=== PATIENT | male | born 1970 | race Caucasian/White ===

== ENCOUNTER 2017-09-13 13:05 | Emergency (ER) | payer SELFPAY ==
[2017-09-13 13:06] VITALS: BP 138/97; PULSE 71; RESP 16; TEMP 36.8; O2SAT 96; BMI 30.5
--- NOTE | 2017-09-13 13:37 | CT_ITS ---
STUDY: CT SOFT TISSUE NECK WITH CONTRAST REASON FOR EXAM: Male, 47 years old. Right neck swelling. RADIATION DOSAGE (If Supplied By Facility): CTDIvol = ( 20.12 ) mGy, DLP = ( 592.74 ) mGycm TECHNIQUE: The patient was scanned in a multi-detector CT scanner. High resolution transaxial imaging was performed following intravenous administration of 100 ml of Isovue 300 contrast material. Sagittal and coronal images were reconstructed. Individualized dose optimization techniques were used for this CT. COMPARISON: None. FINDINGS: Normal bilateral parotid glands. Normal bilateral medical terminologist spaces. Normal bilateral parapharyngeal spaces. Normal bilateral carotid spaces. Normal bilateral sublingual and submandibular glands and spaces. Normal visualized nasopharynx. Normal retropharyngeal space. Normal perivertebral space. Normal visualized bilateral faucial tonsils. The visualized tongue, tongue base and oropharynx are normal. The visualized cervical lymph nodes (levels I-) are within normal size limits, and maintain normal morphology. There is no demonstrated solid or cystic mass lesion. There is no abnormal contrast enhancement. Normal epiglottis, bilateral vallecula and hypopharynx. The pre-epiglottic and paraglottic adipose spaces are normal. Normal visualized bilateral piriform sinuses, aryepiglottic folds, vocal cords, and arytenoid-cricoid articulations. Normal subglottic trachea. Normal bilateral lobes of the thyroid gland. Normal visualized pulmonary apices. Normal visualized paranasal sinuses. Normal visualized cervical spine. CT/Soft Tissue Neck WITH Contrast IMPRESSION: Normal enhanced CT examination of the soft tissues of the neck. Electronically Signed: Jorge Cobb MD at 14:45 EST , Service support ,
[2017-09-13 14:10] LABS: Absolute Lymphocyte Count 2.57 X10^3/ul (0.83-4.51); Absolute Neutrophil Count 3.8 X10^3/uL (2.0-7.7); Basophil# 0.04 X10^3/uL; Basophil% 0.5 % (0-1); Eosinophil# 0.75 X10^3/uL; Eosinophils% 9.7 % (0-5); Hematocrit 44.6 % (40-54); Hemoglobin 15.3 g/dl (13.0-16.5); Lymphocyte # 2.57 X10^3/ul (4.0); Lymphocyte % 33.2 % (19-41); Mean Corp Hgb Conc 34.3 g/gl (32-36); Mean Corpuscular Hgb 30.5 pg (27.0-32.0); Mean Platelet Vol. 11.5 fl (6.2-12.0); Monocyte% 7.8 % (0-10); Neutrophil # 3.77 X10^3/uL (2.7-7.7); Neutrophil % 48.7 % (47-70); Platelet Count 156 K/mm3 (150-450); RBC Distribution Width SD 41.6 fl (35.1-43.9); Red Blood Count 5.01 M/mm3 (4.6-6.2); White Blood Count 7.7 K/mm3 (4.4-11.0)
[2017-09-13 14:12] LABS: POSITIVE COUNT NO; POSITIVE DIFFERENTIAL NO; POSITIVE MORPHOLOGY NO
--- NOTE | 2017-09-13 14:52 | ED.DCSUM_ITS ---
- ER Visit Summary Date of Service: 09/13/17 Chief Complaint: Facial swelling History of Present Illness: The patient is a 47 M states for the past week he has had a swelling just posterior to the angle of his mandible and inferior to his ear. He states it is tender to palpation he notes the occasional radiation of pain up towards his forehead. No redness. He states he lost a filling on his tooth about a month ago but has not had any pain. No fevers. No URIs. No sore throat or ear pain. Patient states that he is very concerned he may have cancer since his family has had similar presentations. Physical Examination: Afebrile vital signs are stable Gen: Well-nourished well-developed Head: Normocephalic atraumatic Eyes: Perrl EOMI ENT: TMs clear no rhinorrhea moist mucous membranes Neck: Supple no lymphadenopathy no JVD nontender there appears to be a small lymph node at the angle of the mandible. It is enlarged and tender. There is no overlying erythema. CVS: Regular rate rhythm no murmurs normal S1-S2 Respiratory: No distress clear to auscultation bilaterally chest nontender Abdomen: Soft nontender nondistended normal bowel sounds no masses Back: Nontender Extremity: Nontender no edema Skin: Normal color no rash Neuro: alert orientated ?3 CN II-XII intact normal strength sensation reflexes gait cerebellar Psych: Normal affect normal mood Test Results: White blood cell count was normal. CT of the neck with contrast was negative. Emergency Department Course and Treatment: Patient will be started on Keflex. He is very thankful for the evaluation for putting his mind at ease. Patient will return if worsening or follow-up with ENT (Dr. Issa on-call today) if not improving. Impression: 1. Lymphadenitis This note was generated with [employer] ([employer] dictation software. It may contain incorrect words, spelling, and punctuation that were not noted in review of the chart prior to signing ED Disposition - Plan for ED Patient: Disposition: Home or Assisted Living Chief Complaint: Dental Instructions: ED Lymphangitis Prescriptions: Cephalexin [Keflex] 500 mg PO Q6 #40 cap Referrals: Care Physician,No Primary [Primary Care Provider] - Jacoby Issa MD [STAFF PHYSICIAN] - 1 Week if not improving
== END 2017-09-13 15:07 | disposition home or self-care (01) ==
PROVIDERS: Emergency Provider Emergency Medicine
DX: I88.9 Nonspecific lymphadenitis, unspecified (principal)
CPT/HCPCS: 70491; 85025; 99284; Q9967; A4216

== ENCOUNTER 2017-09-29 09:22 | Emergency (ER) | payer SELFPAY ==
[2017-09-29 09:23] VITALS: BP 138/96; PULSE 59; RESP 18; TEMP 36.8; O2SAT 98; BMI 30.5
--- NOTE | 2017-09-29 09:58 | ED.DCSUM_ITS ---
- ER Visit Summary Date of Service: 09/29/17 Chief Complaint: [Right facial pain] History of Present Illness: The patient is a 47 M [presents the emergency department with 1 month of right facial pain. It is in front of his right ear. He was seen here 2 weeks ago and had a CT soft tissue of the neck which was unremarkable. CBC showed high eosinophils but was otherwise normal. No fevers. It is not a shooting phase but does come to radiate into his jaw and his right forehead. The ear feels fine. It is not worse with eating or biting down. Hurt worse when he put pressure on it and open his mouth. He does grind his teeth when he sleeps.] Physical Examination: [] Pressure 138/96 other vitals within normal limits TM is normal external auditory canal is normal bilaterally No anterior posterior cervical or radicular adenopathy. Swelling of the right face Patient does have dental fillings on the maxillary and mandibular teeth but there is no focal gum erythema swelling or tenderness to tooth percussion no pain with biting down Patient does have tenderness over the TMJ which is exacerbated by opening his mouth Is no submandibular or sublingual edema no pooling of secretions no trismus Regular rate and rhythm no murmurs Clear to auscultation bilaterally Test Results: [] Emergency Department Course and Treatment: [Patient likely has TMJ. He was given a Medrol Dosepak and Tylenol with codeine. He will be given a referral to ENT for follow-up. He was given precautions for which to return.] Treatment Plan: [] Disposition: [disCharge] Impression: [. Right jaw pain 2. Right TMJ] This note was generated with [employer] dictation software. It may contain incorrect words, spelling, and punctuation that were not noted in review of the chart prior to signing ED Disposition - Plan for ED Patient: Chief Complaint: Ear Problem Referrals: Care Physician,No Primary [Primary Care Provider] -
--- NOTE | 2017-09-29 09:58 | ED.DEP ---
ED Disposition - Plan for ED Patient: Chief Complaint: Ear Problem Instructions: ED TMJ Syndrome Prescriptions: MethylPREDNISolone DosePak [Medrol DosePak] 4 mg PO UD #1 box Acetaminophen/Codeine #3 [Tylenol #3 Tablet] 1 - 2 tablet PO Q6H PRN 3 Days #12 tablet PRN Reason: Pain Referrals: Sorin Ibarra MD [STAFF PHYSICIAN] - 5-7 Days
== END 2017-09-29 10:10 | disposition home or self-care (01) ==
LOC: ED 10:02
PROVIDERS: Emergency Provider Emergency Medicine
DX: R68.84 Jaw pain (principal); M26.601 Right temporomandibular joint disorder, unspecified
CPT/HCPCS: 99282

== ENCOUNTER 2018-11-11 09:00 | Emergency (ER) | payer SELFPAY ==
[2018-11-11 09:01] VITALS: BP 120/78; PULSE 73; RESP 16; TEMP 36.9; O2SAT 98; BMI 32.0
[2018-11-11 10:40] LABS: Absolute Lymphocyte Count 1.91 X10^3/ul (0.83-4.51); Absolute Neutrophil Count 4.5 X10^3/uL (2.0-7.7); Basophil# 0.04 X10^3/uL; Basophil% 0.5 % (0-1); Eosinophil# 0.43 X10^3/uL; Eosinophils% 5.7 % (0-5); Hematocrit 44.6 % (40-54); Hemoglobin 15.5 g/dl (13.0-16.5); Lymphocyte # 1.91 X10^3/ul (4.0); Lymphocyte % 25.2 % (19-41); Mean Corp Hgb Conc 34.8 g/gl (32-36); Mean Corpuscular Hgb 30.5 pg (27.0-32.0); Mean Corpuscular Volume 87.8 fL (80-94); Mean Platelet Vol. 11.4 fl (6.2-12.0); Monocyte% 9.2 % (0-10); Neutrophil # 4.49 X10^3/uL (2.7-7.7); Neutrophil % 59.4 % (47-70); Platelet Count 148 K/mm3 (150-450); RBC Distribution Width CV 12.8 % (11.6-14.6); Red Blood Count 5.08 M/mm3 (4.6-6.2); White Blood Count 7.6 K/mm3 (4.4-11.0)
[2018-11-11 10:41] LABS: POSITIVE COUNT NO; POSITIVE DIFFERENTIAL NO; POSITIVE MORPHOLOGY NO
[2018-11-11 10:52] LABS: ALB/GLOB Ratio 1.2 RATIO (0.9-2.4); AST(SGOT) 23 U/L (15-37); Alanine Aminotransfer ALT/SGPT 69 U/L (16-61); Albumin, Serum 3.8 g/dL (3.2-5.0); Alkaline Phosphatase 75 U/L (45-117); Anion Gap 6 (5-15); BUN 11 mg/dL (7-18); BUN/Creat Ratio 11.8 RATIO (10-20); Calcium,Total 8.2 mg/dL (8.5-10.1); Chloride 109 mmol/L (98-107); Creatinine, Serum 0.93 mg/dL (0.70-1.30); EST Glomerular Filtration Rate 93 mL/min (>60); Est Glom Filt Rate - Afr Amer 112 mL/min (>60); Estimated Creatinine Clearance 96.02 ml/min; Globulin 3.2 g/dL (2.2-4.2); Glucose 129 mg/dL (74-106); Lipase 92 U/L (73-393); Sodium Level 142 mmol/L (136-145)
--- NOTE | 2018-11-11 11:11 | ED.RN ---
DELAY IN MEDICATING D/T ACUITY AND LACK OF STAFF.
[2018-11-11] MEDS: 0.9% Normal Saline 1,000 ML 1000 ML IV (11:12)
[2018-11-11] MEDS: morphine 8 MG/ML Syringe IV (11:12)
[2018-11-11] MEDS: Ondansetron 4 MG/2 ML Vial IV (11:13)
[2018-11-11 11:16] VITALS: BP 120/95; PULSE 67; RESP 22; O2SAT 97
[2018-11-11 13:00] VITALS: PULSE 58; RESP 15; O2SAT 98
--- NOTE | 2018-11-11 13:30 | US_ITS ---
STUDY: ABDOMINAL ULTRASOUND - RIGHT UPPER QUADRANT REASON FOR VISIT: Male, 48 years old. Right upper quadrant pain TECHNIQUE: Ultrasound evaluation of the right upper quadrant was performed with real-time and static fiore-scale imaging. TECHNICAL QUALITY: Adequate. COMPARISON: None. FINDINGS: Liver: The liver measures 18.3 cm. There is increased echogenicity consistent with fatty infiltration. The bile ducts are within normal limits. There is hepatic color flow. The direction of portal flow is hepatopetal. There is no demonstrated mass lesion. Gallbladder: Normal distended gallbladder. The gallbladder wall measures 3 mm. There is a negative sonographic Corona's sign. There is no pericholecystic fluid. There are no gallstones. Common Bile Duct (C.B.D.): The common bile duct measures 5 mm. Pancreas: Normal size of the head, body and tail of the pancreas. There is normal echogenicity of the pancreas. There is no demonstrated pancreatic mass or cyst. Right Kidney: Normal size of the right kidney. The right kidney measures 12.8 x 5.5 x 5.1 cm. Normal renal cortex. The right cortex measures 1.6 cm. There is no demonstrated renal mass or cyst. There is no right hydronephrosis. US/Gallbladder IMPRESSION: Hepatic steatosis. No acute abnormality. Electronically Signed: Cinthya Miranda MD at 14:25 EDT , Service support ,
--- NOTE | 2018-11-11 13:53 | ED.DCSUM_ITS ---
History of Present Illness Chief Complaint: Other, Pain/Inj Detail of Chief Complaint: Localized to right upper quadrant Informant: Patient, Family Onset: Today, Yesterday Timing: Intermittent, Waxes and wanes Quality: Severe Location: Right upper quadrant Current Severity: Moderate Maximum Severity: Severe Worsened by: Uncertain Relieved by: Nothing Associated Symptoms: Radiating to the back/flank Narrative: 48-year-old gentleman who presents with right upper quadrant pain that started last evening. Waxing and waning. He also complained of tingling in his right little and long finger. He does have nausea vomiting. He denies history of liver disease or gallbladder disease. He states he does not eat healthy so he cannot determine whether greasy or fried foods cause him discomfort. He denies dysuria, frequency, urgency or hematuria. He has no history of renal ureterolithiasis. He denies pleuritic pain. Denies history of PE, DVT or any risk factors. He is a smoker. He does drink. He apparently had a 6 pack this past weekend. Past Medical History - Allergies and Home Meds Allergies/Adverse Reactions: Allergies No Known Allergies Allergy (Verified 11/11/18 09:04) Primary Care Physician: [facility] [Primary Care Provider] - Prior records reviewed: Yes Past Medical History: None Surgical History: no surgical history Lives: Spouse/ Significant Other Smoking Status: Former smoker Alcohol: Occasional Drugs: None Review of Systems General: Denies: Chills, Fever, Sweats Eyes: Denies: Visual changes - bilaterally, Blurred Vision - bilaterally, Diplopia ENT: Denies: Bilateral ear pain, Rhinorrhea, Sore throat Cardiovascular: Denies: Chest pain, Palpitations Respiratory: Denies: Dyspnea, Cough, Dyspnea on exertion Gastrointestinal: Denies: Abdominal pain, Nausea, Vomiting, Diarrhea, Melena, Hematochezia Genitourinary: Denies: Dysuria, Hematuria, Frequency Musculoskeletal: Reports: Back pain. Denies: Myalgias, Arthralgias, Neck pain, Extremity Pain Skin: Denies: Rash, Wounds Neurological: Denies: Headache, Weakness, Numbness Hematologic: Denies: Easy bruising, Easy bleeding Allergy: Denies: Uticaria Physical Exam Vital Signs/Narrative: Vital Signs Pulse Resp BP Pulse Ox 11/11/18 13:00 58 L 15 98 11/11/18 11:16 67 22 H 120/95 H 97 Inital Vital Signs reviewed: Yes General: Well nourished, Well developed, Obese, No Acute Distress Head: Normocephalic, Atraumatic Eyes: Perrl, EOMI. Negative for: Pale conjunctiva, Scleral icterus ENT: No rhinorrhea, TM's clear, Dry mucous membranes Neck: Supple, Nontender, No lymphadenopathy, No JVD Cardiovascular: Regular rate, Regular rhythm, No murmurs, Normal S1, Normal S2 Respiratory: No distress, CTA bilaterally, Chest nontender Abdomen: No masses, Tender, Guarding, Hypoactive bowel sounds, Corona's sign. Negative for: Hepatomegaly, Splenomegaly, Mass, Pulsatile mass, Ventral hernia, Inguinal hernia, Umbilical hernia Rectal: Deferred Back: Nontender, Normal Inspection. Negative for: CVA tenderness Extremities: Nontender, No edema. Negative for: Calf Tenderness Skin: Normal color, No rash Neurological: Alert, Oriented x3, Cranial nerves II-XII grossly intact, Normal Strength, Normal Sensation Psychological: Normal affect, Normal Mood Diagnostic/Tx/Re-eval Impressions Gallbladder Ultrasound 11/11/18 13:30 IMPRESSION: Hepatic steatosis. No acute abnormality. Electronically Signed: Cinthya Miranda MD at 14:25 EDT , Service support , 11/11/18 13:30 Gallbladder [US] Stat Laboratory Results 11/11/18 11/11/18 10:18 10:18 WBC 7.6 RBC 5.08 Hgb 15.5 Hct 44.6 MCV 87.8 MCH 30.5 MCHC 34.8 RDW 12.8 RDW Differential 41.0 Plt Count 148 L MPV 11.4 Immature Gran % (Auto) 0.000 Neut % (Auto) 59.4 Lymph % (Auto) 25.2 [place] % (Auto) 9.2 Eos % (Auto) 5.7 H Baso % (Auto) 0.5 Absolute Neuts (auto) 4.5 Absolute Lymphs (auto) 1.91 Total Counted Not Reportable Sodium 142 Potassium 4.0 Chloride 109 H Carbon Dioxide 27.0 Anion Gap 6 BUN 11 Creatinine 0.93 Estim Creat Clear Calc 96.02 Est GFR (MDRD) Af Amer 112 Est GFR (MDRD) Non-Af 93 BUN/Creatinine Ratio 11.8 Glucose 129 H Calcium 8.2 L Total Bilirubin 0.30 AST 23 ALT 69 H Alkaline Phosphatase 75 Total Protein 7.0 Albumin 3.8 Globulin 3.2 Albumin/Globulin Ratio 1.2 Lipase 92 - Medical Decision Making With acute onset of right upper abdominal pain radiating to the flank back area and clinical Corona sign will obtain electric panel, CBC, lipase and hepatic profile. He was medicated with Zofran and morphine. Since he had peanut butter for breakfast ultrasound was ordered for 1330. Will obtain UA in the event this is an atypical presentation for obstructing ureteral stone. With regards to the tingling right little and long finger patient has a positive Tinel sign over the ulnar nerve. This may represent ulnar nerve entrapment. Workup was entirely normal. The cause of his pain is unknown. He was informed of his results. ED Disposition - Plan for ED Patient: Disposition: Home or Assisted Living Diagnosis: Abdominal pain, acute, right upper quadrant, Ulnar nerve paresthesia Instructions: ED Abdominal Pain Unkn Cause Male Prescriptions: Naproxen [Naprosyn] 500 mg PO BID #14 tab [facility] - 3-5 Days Additional Instructions: If you continue to have pain, he will need to follow-up at the [facility] for possible outpatient testing, HIDA scan.
[2018-11-11] MEDS: Morphine 4 MG/ML Syringe IV (14:45)
[2018-11-11 15:39] VITALS: BP 116/82; PULSE 65; RESP 16; O2SAT 96
[2018-11-11 15:59] VITALS: BP 123/88; PULSE 64; RESP 14; O2SAT 94
--- NOTE | 2018-11-11 16:00 | ED.RN ---
IV DC'ED, CATHETER INTACT, SMALL GAUZE DRESSING PLACED. DISCHARGE INSTRUCTIONS GIVEN TO AND REVIEWED WITH PATIENT, PATIENT DENIES QUESTIONS OR CONCERNS AND VOICES UNDERSTANDING OF DISCHARGE INSTRUCTIONS. PT AMBULATES OUT OF ROOM WITHOUT DIFFICULTY.
== END 2018-11-11 16:01 | disposition home or self-care (01) ==
PROVIDERS: Emergency Provider Emergency Medicine
DX: R10.11 Right upper quadrant pain (principal); R20.2 Paresthesia of skin; K76.0 Fatty (change of) liver, not elsewhere classified; E66.9 Obesity, unspecified; F17.200 Nicotine dependence, unspecified, uncomplicated
CPT/HCPCS: 76705; 80053; 83690; 85025; 96361; 96374; 96375; 96376; 99283; J7030; A4216; J2405